=== PATIENT | female | born 1990 | race Caucasian/White ===

== ENCOUNTER 2016-12-08 20:25 | Observation (INO) | payer MEDICAID ==
[~2016-12-08] VITALS: Ht 157.5 cm; Wt 81.6 kg
[2016-12-08] MEDS ORDERED: NALBUPHINE 10 MG/ML AMP IVP PRN (21:30)
[2016-12-08] MEDS: LACTATED RINGERS 1,000 ML IV SCH (22:02)
[2016-12-08] MEDS ORDERED: NALBUPHINE HYDROCHLORIDE 10 MG/ML VIAL ONE (22:53)
[2016-12-09] MEDS: LACTATED RINGERS 1,000 ML IV SCH (06:10)
--- NOTE | 2016-12-09 12:26 | NUR ---
PATIENT HAS BEEN SCREENED AND CATEGORIZED LOW NUTRITION RISK. PATIENT WILL BE SEEN WITHIN 7 DAYS OF ADMISSION. 12/15/16 KRISSY HAGER; SUNIL, RD
[2016-12-21] MEDS ORDERED: TYLENOL EXTRA500 M3 PO (15:54)
== END 2016-12-09 11:25 | disposition home or self-care (01) ==
LOC: MFCC 20:25
PROVIDERS: ADMIT Obstetrics & Gynecology; ATTEND Obstetrics & Gynecology
DX: O26.893 Other specified pregnancy related conditions, third trimester (principal); R10.9 Unspecified abdominal pain; Z3A.36 36 weeks gestation of pregnancy
CPT/HCPCS: 36415; 76805; 81001; 85025; 85379; 85384; 85610; 85730; 96361; 96374; C1758; G0378; J2300; J7120; Q0092

== ENCOUNTER 2016-12-15 14:26 | Observation (INO) | payer MEDICAID ==
[~2016-12-15] VITALS: Ht 157.5 cm; Wt 81.6 kg
[2016-12-15] MEDS ORDERED: NEPHRO-VITE VIT1 TAB PO (15:28)
[2016-12-15] MEDS ORDERED: FERROUS SULFAT325 M1 PO (15:28)
[2016-12-15] MEDS ORDERED: PRENATAL VITAMI1 TA2 PO (15:28)
[2016-12-15 15:32] VITALS: BP 114/71
[2016-12-15] MEDS ORDERED: INFLUENZA VIRUS VACCINE QUAD 0.5 ML SYR IMVAC SCH (22:00)
--- NOTE | 2016-12-16 07:03 | NUR ---
PATIENT HAS BEEN SCREENED AND CATEGORIZED LOW NUTRITION RISK. PATIENT WILL BE SEEN WITHIN 7 DAYS OF ADMISSION. 12/22/16 RICHARD MONTES MS, RDN
[2016-12-16] MEDS ORDERED: TERBUTALINE 1 MG/ML VIAL SUBQ ONE (09:33)
[2016-12-16 13:00] VITALS: BP 120/66
[2016-12-21] MEDS ORDERED: TYLENOL EXTRA500 M3 PO (15:54)
== END 2016-12-16 13:10 | disposition home or self-care (01) ==
LOC: MLD 14:26
PROVIDERS: ADMIT Obstetrics & Gynecology; ATTEND Obstetrics & Gynecology
DX: O12.00 Gestational edema, unspecified trimester (principal); Z3A.00 Weeks of gestation of pregnancy not specified
CPT/HCPCS: 76815; G0378; Q0092

== ENCOUNTER 2017-10-12 17:45 | Observation (INO) | payer MEDICAID ==
[~2017-10-12] VITALS: Ht 157.5 cm; Wt 81.6 kg
[~2017-10-12 17:45] MED LIST: ACET-9800 PO; FERR-193 PO; PREN-546 PO; VITA1TAB44 PO
[2017-10-12 18:46] VITALS: BP 116/72
== END 2017-10-12 19:55 | disposition home or self-care (01) ==
LOC: MLD 17:45
PROVIDERS: ADMIT Obstetrics & Gynecology; ATTEND Obstetrics & Gynecology
DX: O26.893 Other specified pregnancy related conditions, third trimester (principal); R10.9 Unspecified abdominal pain; Z3A.37 37 weeks gestation of pregnancy
CPT/HCPCS: 76805; 81000; G0378; Q0092

== ENCOUNTER 2017-10-14 17:50 | Inpatient (IN) | payer MEDICAID ==
[~2017-10-14] VITALS: Ht 157.5 cm; Wt 81.6 kg
[~2017-10-14 17:50] MED LIST changes: -ACET-9800 PO; -FERR-193 PO; -VITA1TAB44 PO
[2017-10-14] MEDS ORDERED: AMPICILLIN 2,000 MG in NACL 0.9% 100 ML IV ONE (19:15)
[2017-10-14] MEDS ORDERED: LACTATED RINGERS 1,000 ML IV SCH (19:30)
[2017-10-14 19:57] LABS: BASOPHILS % (AUTO) 0.4 % (0.0-2.0); EOSINOPHILS # (AUTO) 0.1 K/uL (0-0.4); EOSINOPHILS % (AUTO) 0.8 % (0.0-4.0); HEMATOCRIT 33.7 % (36-48); HEMOGLOBIN 10.7 g/dL (12.0-16.0); LYMPHOCYTES # (AUTO) 1.3 K/uL (2.5-16.5); LYMPHOCYTES % (AUTO) 12.2 % (20.5-51.1); MEAN CORPUSCULAR HEMOGLOBIN 24 pg (27-31); MEAN CORPUSCULAR HGB CONC 32 g/dL (33-37); MEAN CORPUSCULAR VOLUME 77 fL (80-94); MONOCYTES # (AUTO) 0.8 K/uL (0.8-1.0); MONOCYTES % (AUTO) 7.8 % (1.7-9.3); NEUTROPHILS # (AUTO) 8.6 K/uL (1.8-7.7); NEUTROPHILS % (AUTO) 78.8 % (42.2-75.2); PLATELET COUNT (AUTO) 388 K/uL (140-450); RED BLOOD CELL COUNT(AUTO) 4.38 MIL/uL (4.20-5.40); RED CELL DISTRIBUTION WIDTH 15.1 % (11.6-13.7); WHITE BLOOD COUNT (AUTO) 10.8 K/uL (4.8-10.8)
[2017-10-14] MEDS ORDERED: MISOPROSTOL 25 MCG TAB VG SCH (20:00)
[2017-10-14] MEDS ORDERED: AMPICILLIN 2,000 MG VIAL ONE (20:05)
[2017-10-14 20:07] LABS: APPEARANCE,URINE CLOUDY (CLEAR); BILIRUBIN,URINE NEGATIVE (NEGATIVE); BLOOD, URINE NEGATIVE (NEGATIVE); COLOR,URINE YELLOW (YELLOW); LEUKOCYTE ESTERASE ,URINE 1+ (NEGATIVE); NITRITE, URINE NEGATIVE (NEGATIVE); UGLUCOSE NEGATIVE (NEGATIVE)
[2017-10-14 20:35] LABS: RBC,URINE 0-5 (RARE) /HPF (0-5); WBC,URINE 20-60 /HPF (0-5)
[2017-10-14 21:22] VITALS: BP 112/69
[2017-10-15] MEDS ORDERED: AMPICILLIN 1,000 MG in NACL 0.9% 50 ML IV SCH ×2
[2017-10-15] MEDS ORDERED: AMPICILLIN 1,000 MG VIAL ONE ×3 (00:03→12:19)
[2017-10-15] MEDS ORDERED: MISOPROSTOL 25 MCG TAB ONE (01:41)
[2017-10-15] MEDS ORDERED: OXYTOCIN 20 UNITS in LACTATED RINGERS 1,000 ML IV SCH (02:33)
[2017-10-15] MEDS ORDERED: MISOPROSTOL 25 MCG TAB VG SCH (02:35)
[2017-10-15] MEDS ORDERED: ONDANSETRON 4 MG/2 ML VIAL IVP PRN (02:35)
[2017-10-15] MEDS ORDERED: NALBUPHINE 10 MG/ML AMP IVP PRN (02:35)
[2017-10-15] MEDS ORDERED: MORPHINE SULFATE 2 MG/ML SYR IVP PRN (02:35)
[2017-10-15] MEDS ORDERED: OXYTOCIN 20 UNITS/LR PREMIX 1,000 ML IV ONE (06:37)
[2017-10-15] MEDS ORDERED: AMPICILLIN 2,000 MG VIAL ONE (08:32)
[2017-10-15] MEDS ORDERED: NALBUPHINE HYDROCHLORIDE 10 MG/ML VIAL ONE (08:50)
[2017-10-15] MEDS ORDERED: PROMETHAZINE 25 MG/ML VIAL ONE (08:50)
--- NOTE | 2017-10-15 08:58 | NUR ---
PATIENT HAS BEEN SCREENED AND CATEGORIZED LOW NUTRITION RISK. PATIENT WILL BE SEEN WITHIN 7 DAYS OF ADMISSION. 10/21/2017 KRISSY HAGER MBA, RD
[2017-10-15] MEDS ORDERED: BUPIVACAINE 0.125%/NS PREMIX 250 ML EPI SCH (13:00)
[2017-10-15] MEDS ORDERED: LIDOCAINE 1% 50 ML ONE (14:13)
[2017-10-15] MEDS ORDERED: OXYTOCIN 10 UNITS/ML VIAL ONE (14:13)
[2017-10-15] MEDS ORDERED: INFLUENZA VIRUS VACCINE QUAD 0.5 ML SYR IMVAC SCH (21:10)
[2017-10-16] MEDS ORDERED: IBUPROFEN 400 MG TAB PO PRN (04:55)
[2017-10-16] MEDS ORDERED: IBUPROFEN 400 MG TAB ONE (05:12)
[2017-10-16 09:45] LABS: BASOPHILS # (AUTO) 0.1 K/uL (0.00-0.22); BASOPHILS % (AUTO) 0.5 % (0.0-2.0); EOSINOPHILS # (AUTO) 0.1 K/uL (0-0.4); EOSINOPHILS % (AUTO) 0.7 % (0.0-4.0); HEMATOCRIT 33.5 % (36-48); HEMOGLOBIN 10.9 g/dL (12.0-16.0); LYMPHOCYTES # (AUTO) 1.5 K/uL (2.5-16.5); LYMPHOCYTES % (AUTO) 13.6 % (20.5-51.1); MEAN CORPUSCULAR HEMOGLOBIN 25 pg (27-31); MEAN CORPUSCULAR HGB CONC 32 g/dL (33-37); MEAN CORPUSCULAR VOLUME 77 fL (80-94); MONOCYTES # (AUTO) 0.5 K/uL (0.8-1.0); MONOCYTES % (AUTO) 4.5 % (1.7-9.3); NEUTROPHILS # (AUTO) 8.9 K/uL (1.8-7.7); NEUTROPHILS % (AUTO) 80.7 % (42.2-75.2); PLATELET COUNT (AUTO) 337 K/uL (140-450); RED BLOOD CELL COUNT(AUTO) 4.37 MIL/uL (4.20-5.40); RED CELL DISTRIBUTION WIDTH 15.3 % (11.6-13.7); WHITE BLOOD COUNT (AUTO) 11.1 K/uL (4.8-10.8)
[2017-10-16] MEDS ORDERED: IBUPROFEN 600 MG TAB PO PRN (17:00)
[2017-10-16] MEDS ORDERED: oxyCODONE/APAP 5/325 MG 1 TAB TAB PO PRN (17:00)
[2017-10-16] MEDS ORDERED: MEASLES, MUMPS, AND RUBELLA 1 VIAL SQVAC PRN (17:00)
== END 2017-10-17 15:40 | disposition home or self-care (01) | DRG 560 ==
LOC: MFCC 17:50
PROVIDERS: ADMIT Obstetrics & Gynecology; ATTEND Obstetrics & Gynecology
PROC: 10E0XZZ Delivery of Products of Conception, External Approach (ICD-10-PCS; principal; 2017-10-15)
PROC: 10907ZC Drainage of Amniotic Fluid, Therapeutic from Products of Conception, Via Natural or Artificial Opening (ICD-10-PCS; 2017-10-15)
DX: O99.824 Streptococcus B carrier state complicating childbirth (principal); O41.03X0 Oligohydramnios, third trimester, not applicable or unspecified; Z37.0 Single live birth; Z3A.39 39 weeks gestation of pregnancy
CPT/HCPCS: 36415; 51702; 59409; 81001; 85025; 86592; 86886; 86900; 86901; 87086; J0290; J2001; J2300; J2550; J2590; J3490; J7120